=== PATIENT | female | born 1955 | race Caucasian/White ===

== ENCOUNTER 2021-02-14 12:46 | Inpatient (IN) | payer MEDICARE, MEDICAID ==
[~2021-02-14] VITALS: Ht 170.2 cm; Wt 139.4 kg
[~2021-02-14 12:46] MED LIST: ALBUAER3 IN; CARI-277 PO; CARV3.1240 PO; CLIN300C8 PO; FURO40TA4 PO; HYDR-4833 PO; HYDR8TAB46 PO; POTA10TA32 PO; SACC250C PO
[2021-02-14] MEDS ORDERED: SODIUM CHLORIDE 0.9% 500 ML IV ONE (13:15)
[2021-02-14] MEDS ORDERED: CLINDAMYCIN 600MG IV 50 ML IV ONE (13:15)
[2021-02-14 14:05] LABS: Basophils # (auto) 0.2 10 ^3/uL (0-0.2); Eosinophils # (auto) 0.5 10 ^3/uL (0-0.8); Hemoglobin 12.2 g/dL (12.2-16.2)
[2021-02-14 14:07] LABS: Basophils % (auto) 1.3 % (0.0-2.0); Eosinophils % (auto) 3.5 % (0.0-7.0); Hematocrit 37.6 % (36.0-46.0); Lymphocytes # (auto) 1.8 10 ^3/uL (0.4-5.4); Lymphocytes % (auto) 12.5 % (10.0-50.0); Mean Corpuscular Hgb Conc. 32.4 g/dL (32.0-36.0); Mean Corpuscular Volume 83.2 fL (80.0-100.0); Monocytes # (auto) 1.3 10 ^3/uL (0-1.3); Monocytes % (auto) 9.2 % (0.0-12.0); Neutrophils # (auto) 10.4 10 ^3/uL (1.6-8.6); Neutrophils % (auto) 73.5 % (37.0-80.0); Nucleated Red Blood Cells % 0.1 %; Red Blood Cells 4.53 10^6/uL (4.0-5.20); White Blood Cell 14.2 10^3/uL (4.4-10.8)
[2021-02-14 14:22] LABS: Albumin 3.1 g/dL (3.4-5.0); Calcium 8.6 mg/dL (8.5-10.1)
[2021-02-14 14:25] LABS: BUN/Creatinine Ratio 18.8; Total Protein 6.4 g/dL (6.4-8.2)
[2021-02-14] MEDS ORDERED: ACETAMINOPHEN 500 MG TAB PO PRN (18:30)
[2021-02-14] MEDS ORDERED: ALBUTEROL SULF 2.5 MG/0.5ML(0.5%) NEB SOLN NEB PRN (18:30)
[2021-02-14] MEDS ORDERED: LORazepam 0.5 MG TAB PO PRN (18:30)
[2021-02-14] MEDS ORDERED: MORPHINE SULFATE INJECTION 2 MG/ML SYRG IV PRN (18:30)
[2021-02-14] MEDS ORDERED: TETANUS-DIPTH-ACEL PERTUSSIS 0.5ML SYR Tdap IM ONE (18:30)
[2021-02-14] MEDS ORDERED: DEXTROSE (50%) 50ML SYRG IV PRN (18:30)
[2021-02-14] MEDS ORDERED: DOCUSATE CALCIUM 240 MG CAP PO PRN (18:30)
[2021-02-14] MEDS ORDERED: IPRATROPIUM BROM 0.5 MG/2.5ML INH SOL NEB PRN (18:30)
[2021-02-14] MEDS ORDERED: NITROGLYCERIN 0.4 MG SL TAB SL PRN (18:30)
[2021-02-14] MEDS ORDERED: hydrALAZINE HCL 20 MG/ML VL IV PRN (18:30)
[2021-02-14] MEDS: MORPHINE SULFATE 4 MG/ML SYR/VIAL IV PRN (19:08)
[2021-02-14 19:24] VITALS: BP 153/68
[2021-02-14] MEDS: InsuLIN REG 1unit/0.01ml Soln (100units/ml) SC SCH (20:00)
[2021-02-14] MEDS: ACCU-CHEK COMFORT CURVE STRIP VI SCH ×2 (20:16→23:04)
[2021-02-14 20:37] VITALS: BP 153/85
[2021-02-14] MEDS ORDERED: APIX5TAB PO (21:06)
[2021-02-14] MEDS ORDERED: CARV3.1240 PO (21:06)
[2021-02-14] MEDS ORDERED: OXYB5TAB61 PO (21:07)
[2021-02-14] MEDS ORDERED: NAPR220C PO (21:11)
[2021-02-14 22:00] VITALS: BP 130/72
[2021-02-14] MEDS: INSULIN LANTUS (GLARGINE) 1 /0.01ml (100units/ml) SC SCH (23:08)
[2021-02-14] MEDS: PIPERACILLIN-TAZOB 3.375GM 100 ML IV SCH (23:44)
[2021-02-15] MEDS: InsuLIN REG 1unit/0.01ml Soln (100units/ml) SC SCH ×7 (00:01→22:00)
[2021-02-15] MEDS: ACCU-CHEK COMFORT CURVE STRIP VI SCH ×6 (04:05→22:00)
[2021-02-15 05:00] VITALS: BP 131/79
[2021-02-15] MEDS: PIPERACILLIN-TAZOB 3.375GM 100 ML IV SCH ×4 (06:13→23:51)
[2021-02-15] MEDS: MORPHINE SULFATE 4 MG/ML SYR/VIAL IV PRN ×4 (06:33→23:51)
[2021-02-15 06:38] LABS: Basophils # (auto) 0.1 10 ^3/uL (0-0.2); Eosinophils # (auto) 0.6 10 ^3/uL (0-0.8); Mean Corpuscular Hemoglobin 26.5 pg (28.0-32.0); Nucleated Red Blood Cells % 0.1 %
[2021-02-15 06:40] LABS: Basophils % (auto) 1.2 % (0.0-2.0); Eosinophils % (auto) 5.3 % (0.0-7.0); Hematocrit 40.8 % (36.0-46.0); Hemoglobin 12.7 g/dL (12.2-16.2); Lymphocytes # (auto) 1.8 10 ^3/uL (0.4-5.4); Lymphocytes % (auto) 15.1 % (10.0-50.0); Mean Corpuscular Hgb Conc. 31.1 g/dL (32.0-36.0); Monocytes # (auto) 1.2 10 ^3/uL (0-1.3); Monocytes % (auto) 10.1 % (0.0-12.0); Neutrophils # (auto) 8.3 10 ^3/uL (1.6-8.6); Neutrophils % (auto) 68.3 % (37.0-80.0); Red Cell Distribution Width 16.7 % (11.8-14.3); White Blood Cell 12.2 10^3/uL (4.4-10.8)
[2021-02-15 06:43] LABS: Potassium 4.2 mmol/L (3.5-5.1)
[2021-02-15 06:48] LABS: Albumin 2.8 g/dL (3.4-5.0); Calcium 8.4 mg/dL (8.5-10.1); Total Protein 6.3 g/dL (6.4-8.2)
[2021-02-15 07:03] LABS: INR 1.18 (0.9-1.15); Partial Thromboplastin Time 27.3 sec (23.0-31.2)
[2021-02-15 07:23] LABS: Urine Bacteria MANY /hpf (None Seen); Urine Blood 3+ /uL (Negative); Urine Mucus FEW (None Seen); Urine Specific Gravity 1.023 (1.001-1.035); Urine WBC 250 /hpf (0 - 5); Urine WBC Clumps PRESENT /hpf (None Seen)
[2021-02-15 09:00] VITALS: BP 121/80
[2021-02-15] MEDS ORDERED: ENOXAPARIN SOD 40 MG/0.4 ML SYRINGE SC SCH (10:00)
[2021-02-15] MEDS: PANTOPRAZOLE 40 MG TAB PO SCH (10:02)
[2021-02-15] MEDS: levoFLOXacin 750MG 150 ML IV SCH (10:02)
[2021-02-15 13:00] VITALS: BP 124/75
[2021-02-15] MEDS ORDERED: NAPROXEN 500 MG TAB PO PRN (16:30)
[2021-02-15] MEDS ORDERED: CARISOPRODOL 350 MG TAB PO PRN (16:30)
[2021-02-15 17:00] VITALS: BP 125/73
[2021-02-15] MEDS: ONDANSETRON HCL 4 MG/2 ML VIAL IV PRN (18:01)
[2021-02-15] MEDS: NAPROXEN 500 MG TAB PO SCH ×2 (18:01→22:25)
[2021-02-15 20:00] VITALS: BP 141/73
[2021-02-15 22:00] VITALS: BP 141/73
[2021-02-15] MEDS: INSULIN LANTUS (GLARGINE) 1 /0.01ml (100units/ml) SC SCH (22:00)
[2021-02-15] MEDS: OXYBUTYNIN CHL 5 MG TAB PO SCH (22:18)
[2021-02-15] MEDS: APIXABAN 5 MG TAB PO SCH (22:18)
[2021-02-15] MEDS: CLINDAMYCIN 300MG IV 50 ML IV SCH (22:26)
[2021-02-15] MEDS: CARVEDILOL 3.125 MG TAB PO SCH (22:26)
[2021-02-16 05:00] VITALS: BP 130/77
[2021-02-16] MEDS: CLINDAMYCIN 300MG IV 50 ML IV SCH ×3 (05:36→22:28)
[2021-02-16] MEDS: MORPHINE SULFATE 4 MG/ML SYR/VIAL IV PRN ×3 (05:45→23:02)
[2021-02-16 06:03] LABS: Basophils # (auto) 0.1 10 ^3/uL (0-0.2); Eosinophils # (auto) 0.4 10 ^3/uL (0-0.8); Lymphocytes # (auto) 2.3 10 ^3/uL (0.4-5.4); Monocytes # (auto) 1.5 10 ^3/uL (0-1.3); Monocytes % (auto) 10.6 % (0.0-12.0); Nucleated Red Blood Cells % 0.1 %
[2021-02-16 06:05] LABS: Basophils % (auto) 0.9 % (0.0-2.0); Eosinophils % (auto) 2.9 % (0.0-7.0); Hematocrit 39.5 % (36.0-46.0); Hemoglobin 12.5 g/dL (12.2-16.2); Lymphocytes % (auto) 16.6 % (10.0-50.0); Mean Corpuscular Hgb Conc. 31.6 g/dL (32.0-36.0); Mean Corpuscular Volume 85.4 fL (80.0-100.0); Neutrophils # (auto) 9.7 10 ^3/uL (1.6-8.6); Red Blood Cells 4.62 10^6/uL (4.0-5.20); Red Cell Distribution Width 17.3 % (11.8-14.3); White Blood Cell 14.1 10^3/uL (4.4-10.8)
[2021-02-16 06:11] LABS: Potassium 4.9 mmol/L (3.5-5.1)
[2021-02-16 06:18] LABS: INR 1.24 (0.9-1.15)
[2021-02-16 06:19] LABS: Albumin 2.8 g/dL (3.4-5.0); BUN/Creatinine Ratio 18.7; Bilirubin, Total 0.8 mg/dL (0.2-1.0); Calcium 8.6 mg/dL (8.5-10.1); Total Protein 6.6 g/dL (6.4-8.2)
[2021-02-16] MEDS: PIPERACILLIN-TAZOB 3.375GM 100 ML IV SCH ×2 (06:37→12:32)
[2021-02-16] MEDS: ACCU-CHEK COMFORT CURVE STRIP VI SCH ×4 (06:44→22:00)
[2021-02-16] MEDS: NAPROXEN 500 MG TAB PO SCH ×4 (06:48→22:27)
[2021-02-16] MEDS: InsuLIN REG 1unit/0.01ml Soln (100units/ml) SC SCH ×4 (06:50→22:00)
[2021-02-16 09:00] VITALS: BP 126/72
[2021-02-16] MEDS: levoFLOXacin 750MG 150 ML IV SCH (10:39)
[2021-02-16] MEDS: POTASSIUM CHLORIDE 8 MEQ TAB PO SCH (10:40)
[2021-02-16] MEDS: FLORASTOR (S. BOULARDII) 250 MG CAP PO SCH (10:40)
[2021-02-16] MEDS: OXYBUTYNIN CHL 5 MG TAB PO SCH ×2 (10:40→22:27)
[2021-02-16] MEDS: CARVEDILOL 3.125 MG TAB PO SCH ×2 (10:40→22:28)
[2021-02-16] MEDS: APIXABAN 5 MG TAB PO SCH ×2 (10:40→22:27)
[2021-02-16] MEDS: FUROSEMIDE 40 MG TAB PO SCH (10:41)
[2021-02-16] MEDS: PANTOPRAZOLE 40 MG TAB PO SCH (10:41)
[2021-02-16 13:00] VITALS: BP 111/61
[2021-02-16 16:49] VITALS: BP 136/80
[2021-02-16] MEDS: Glucerna Carbsteady SHAKE Vanilla 8oz PO SCH (18:42)
[2021-02-16 20:00] VITALS: BP 130/73
[2021-02-16] MEDS: INSULIN LANTUS (GLARGINE) 1 /0.01ml (100units/ml) SC SCH (22:00)
[2021-02-16 22:14] VITALS: BP 130/73
[2021-02-17] VITALS (7 sets, daily range): BP systolic 114–141; BP diastolic 53–76
[2021-02-17] MEDS: CLINDAMYCIN 300MG IV 50 ML IV SCH ×3 (05:41→23:06)
[2021-02-17] MEDS: ACCU-CHEK COMFORT CURVE STRIP VI SCH ×4 (06:31→23:14)
[2021-02-17] MEDS: InsuLIN REG 1unit/0.01ml Soln (100units/ml) SC SCH ×4 (06:31→22:00)
[2021-02-17] MEDS: NAPROXEN 500 MG TAB PO SCH ×2 (06:37→11:46)
[2021-02-17] MEDS: Glucerna Carbsteady SHAKE Vanilla 8oz PO SCH ×3 (08:00→18:00)
[2021-02-17] MEDS: OXYBUTYNIN CHL 5 MG TAB PO SCH ×3 (10:14→23:06)
[2021-02-17] MEDS: MORPHINE SULFATE 4 MG/ML SYR/VIAL IV PRN ×2 (10:14→14:43)
[2021-02-17] MEDS: APIXABAN 5 MG TAB PO SCH (10:15)
[2021-02-17] MEDS: POTASSIUM CHLORIDE 8 MEQ TAB PO SCH (10:15)
[2021-02-17] MEDS: PANTOPRAZOLE 40 MG TAB PO SCH (10:15)
[2021-02-17] MEDS: FUROSEMIDE 40 MG TAB PO SCH (10:15)
[2021-02-17] MEDS: levoFLOXacin 750MG 150 ML IV SCH (10:16)
[2021-02-17] MEDS: CARVEDILOL 3.125 MG TAB PO SCH ×3 (10:16→23:07)
[2021-02-17] MEDS: FLORASTOR (S. BOULARDII) 250 MG CAP PO SCH (10:47)
[2021-02-17 11:23] LABS: Basophils # (auto) 0.1 10 ^3/uL (0-0.2); Lymphocytes # (auto) 1.4 10 ^3/uL (0.4-5.4); Mean Corpuscular Hemoglobin 26.8 pg (28.0-32.0); Monocytes % (auto) 9.7 % (0.0-12.0); Nucleated Red Blood Cells % 0.1 %
[2021-02-17 11:25] LABS: Basophils % (auto) 0.9 % (0.0-2.0); Eosinophils # (auto) 0.4 10 ^3/uL (0-0.8); Eosinophils % (auto) 3.5 % (0.0-7.0); Hematocrit 36.8 % (36.0-46.0); Hemoglobin 11.8 g/dL (12.2-16.2); Lymphocytes % (auto) 13.1 % (10.0-50.0); Mean Corpuscular Hgb Conc. 32.2 g/dL (32.0-36.0); Mean Corpuscular Volume 83.2 fL (80.0-100.0); Neutrophils # (auto) 7.5 10 ^3/uL (1.6-8.6); Neutrophils % (auto) 72.8 % (37.0-80.0); Red Blood Cells 4.42 10^6/uL (4.0-5.20); Red Cell Distribution Width 16.8 % (11.8-14.3); White Blood Cell 10.3 10^3/uL (4.4-10.8)
[2021-02-17 11:40] LABS: Calcium 8.5 mg/dL (8.5-10.1); Potassium 4.5 mmol/L (3.5-5.1)
[2021-02-17] MEDS: ONDANSETRON HCL 4 MG/2 ML VIAL IV PRN (15:00)
[2021-02-17] MEDS ORDERED: ALPRAZolam 0.5 MG TAB PO PRN (15:15)
[2021-02-17] MEDS: HYDROcodone-ACET 5/325MG TAB PO PRN (18:00)
[2021-02-18] MEDS: INSULIN LANTUS (GLARGINE) 1 /0.01ml (100units/ml) SC SCH ×2 (02:08→22:28)
[2021-02-18 05:00] VITALS: BP 129/64
[2021-02-18] MEDS: InsuLIN REG 1unit/0.01ml Soln (100units/ml) SC SCH ×4 (05:48→22:29)
[2021-02-18] MEDS: CLINDAMYCIN 300MG IV 50 ML IV SCH ×3 (05:53→22:06)
[2021-02-18] MEDS: ACCU-CHEK COMFORT CURVE STRIP VI SCH ×4 (05:53→22:20)
[2021-02-18 08:00] VITALS: BP 147/79
[2021-02-18 09:10] VITALS: BP 147/79
[2021-02-18] MEDS: levoFLOXacin 750MG 150 ML IV SCH (10:25)
[2021-02-18] MEDS: CARVEDILOL 3.125 MG TAB PO SCH ×2 (10:25→22:06)
[2021-02-18] MEDS: Glucerna Carbsteady SHAKE Vanilla 8oz PO SCH ×3 (10:25→18:15)
[2021-02-18] MEDS: PANTOPRAZOLE 40 MG TAB PO SCH (10:26)
[2021-02-18] MEDS: OXYBUTYNIN CHL 5 MG TAB PO SCH ×2 (10:26→22:33)
[2021-02-18] MEDS: FLORASTOR (S. BOULARDII) 250 MG CAP PO SCH (10:26)
[2021-02-18] MEDS ORDERED: ENOXAPARIN SOD 40 MG/0.4 ML SYRINGE SC ONE (12:15)
[2021-02-18 13:03] VITALS: BP 125/69
[2021-02-18] MEDS: HYDROcodone-ACET 5/325MG TAB PO PRN (14:08)
[2021-02-18] MEDS ORDERED: TEMAZEPAM 15 MG CAP PO PRN (14:45)
[2021-02-18 16:26] VITALS: BP 150/94
[2021-02-18] MEDS: MORPHINE SULFATE 4 MG/ML SYR/VIAL IV PRN (20:06)
[2021-02-18] MEDS: ONDANSETRON HCL 4 MG/2 ML VIAL IV PRN (20:14)
[2021-02-18 22:00] VITALS: BP 130/60
[2021-02-19 05:00] VITALS: BP 132/83
[2021-02-19] MEDS: CLINDAMYCIN 300MG IV 50 ML IV SCH ×2 (05:46→14:15)
[2021-02-19] MEDS: ACCU-CHEK COMFORT CURVE STRIP VI SCH ×4 (05:55→22:25)
[2021-02-19] MEDS: InsuLIN REG 1unit/0.01ml Soln (100units/ml) SC SCH ×4 (05:55→22:24)
[2021-02-19 08:00] VITALS: BP 161/92
[2021-02-19 09:00] VITALS: BP 161/82
[2021-02-19] MEDS: CARVEDILOL 3.125 MG TAB PO SCH ×2 (09:43→22:17)
[2021-02-19] MEDS: levoFLOXacin 750MG 150 ML IV SCH (09:43)
[2021-02-19] MEDS: Glucerna Carbsteady SHAKE Vanilla 8oz PO SCH ×3 (09:43→18:26)
[2021-02-19] MEDS: OXYBUTYNIN CHL 5 MG TAB PO SCH ×2 (09:44→22:20)
[2021-02-19] MEDS: ENOXAPARIN SOD 40 MG/0.4 ML SYRINGE SC SCH (09:44)
[2021-02-19] MEDS: PANTOPRAZOLE 40 MG TAB PO SCH (09:44)
[2021-02-19] MEDS: FLORASTOR (S. BOULARDII) 250 MG CAP PO SCH (09:44)
[2021-02-19] MEDS ORDERED: FUROSEMIDE 40 MG/4 ML VIAL IV ONE (10:30)
[2021-02-19 10:39] LABS: BUN/Creatinine Ratio 23.3; Calcium 8.8 mg/dL (8.5-10.1); Potassium 5.2 mmol/L (3.5-5.1)
[2021-02-19] MEDS: MORPHINE SULFATE 4 MG/ML SYR/VIAL IV PRN (10:40)
[2021-02-19] MEDS: ONDANSETRON HCL 4 MG/2 ML VIAL IV PRN (10:40)
[2021-02-19 13:00] VITALS: BP 137/76
[2021-02-19 17:00] VITALS: BP 125/63
[2021-02-19] MEDS: HYDROcodone-ACET 5/325MG TAB PO PRN (17:19)
[2021-02-19 22:00] VITALS: BP 126/68
[2021-02-19] MEDS: CLINDAMYCIN 600MG IV 50 ML IV SCH (22:07)
[2021-02-19] MEDS: INSULIN LANTUS (GLARGINE) 1 /0.01ml (100units/ml) SC SCH (22:25)
[2021-02-20 05:00] VITALS: BP 135/68
[2021-02-20] MEDS: CLINDAMYCIN 600MG IV 50 ML IV SCH ×3 (05:45→21:52)
[2021-02-20] MEDS: InsuLIN REG 1unit/0.01ml Soln (100units/ml) SC SCH ×4 (05:56→21:58)
[2021-02-20] MEDS: ACCU-CHEK COMFORT CURVE STRIP VI SCH ×4 (05:57→21:55)
[2021-02-20] MEDS: Glucerna Carbsteady SHAKE Vanilla 8oz PO SCH ×3 (08:05→18:30)
[2021-02-20 09:00] VITALS: BP 100/40
[2021-02-20] MEDS: PANTOPRAZOLE 40 MG TAB PO SCH (10:00)
[2021-02-20] MEDS: CARVEDILOL 3.125 MG TAB PO SCH ×2 (10:00→21:53)
[2021-02-20] MEDS: OXYBUTYNIN CHL 5 MG TAB PO SCH ×2 (10:00→21:53)
[2021-02-20] MEDS: FLORASTOR (S. BOULARDII) 250 MG CAP PO SCH (10:00)
[2021-02-20] MEDS: ENOXAPARIN SOD 40 MG/0.4 ML SYRINGE SC SCH (10:09)
[2021-02-20] MEDS: MORPHINE SULFATE 4 MG/ML SYR/VIAL IV PRN ×4 (10:09→22:01)
[2021-02-20] MEDS: levoFLOXacin 750MG 150 ML IV SCH (10:09)
[2021-02-20 11:00] LABS: BUN/Creatinine Ratio 20.2; Potassium 4.3 mmol/L (3.5-5.1)
[2021-02-20 13:00] VITALS: BP 133/70
[2021-02-20] MEDS ORDERED: IOHEXOL 300 MG/ML 100ML BOTTLE IJ ONE (13:00)
[2021-02-20] MEDS ORDERED: IOHEXOL 350 MG/ML 100ML IJ ONE (13:01)
[2021-02-20] MEDS ORDERED: ACETYLCYSTEINE ORAL for CIN 20%(200MG/ML) 4ML PO ONE (14:15)
[2021-02-20] MEDS ORDERED: ceFAZolin 1GM VL ONE (15:50)
[2021-02-20] MEDS ORDERED: ROPIVACAINE 0.5% (5MG/ML) 20ML AMPULE IJ ONE (15:50)
[2021-02-20] MEDS ORDERED: ceFAZolin 1GM/50ML 100 ML IV ONE (16:14)
[2021-02-20] MEDS ORDERED: MIDAZOLAM HCL 2MG/2ML 2ml VIAL (1mg/ml) ONE (16:37)
[2021-02-20] MEDS ORDERED: fentaNYL CITRATE 100 MCG/2 ML VL ONE (16:37)
[2021-02-20] MEDS ORDERED: PROPOFOL 10 MG/ML 20 ML IV ONE (16:52)
[2021-02-20] MEDS ORDERED: SILVER SULFADIAZINE 1 % TOPICAL CREAM 50GM TOP ONE (16:57)
[2021-02-20] MEDS: HYDROcodone-ACET 5/325MG TAB PO PRN (20:32)
[2021-02-20] MEDS: MUPIROCIN 2% OINT 15gm or 22gm EACHNOSTRI SCH (21:52)
[2021-02-20] MEDS: ACETYLCYSTEINE ORAL for CIN 20%(200MG/ML) 4ML PO SCH (21:59)
[2021-02-20] MEDS: INSULIN LANTUS (GLARGINE) 1 /0.01ml (100units/ml) SC SCH (21:59)
[2021-02-20 22:00] VITALS: BP 124/67
[2021-02-20] MEDS: ONDANSETRON HCL 4 MG/2 ML VIAL IV PRN (22:00)
[2021-02-21 05:00] VITALS: BP 133/69
[2021-02-21] MEDS: MORPHINE SULFATE 4 MG/ML SYR/VIAL IV PRN ×4 (05:27→22:07)
[2021-02-21] MEDS: ONDANSETRON HCL 4 MG/2 ML VIAL IV PRN ×2 (05:27→22:08)
[2021-02-21] MEDS: InsuLIN REG 1unit/0.01ml Soln (100units/ml) SC SCH ×4 (06:23→22:40)
[2021-02-21] MEDS: CLINDAMYCIN 600MG IV 50 ML IV SCH ×3 (06:23→22:07)
[2021-02-21] MEDS: ACCU-CHEK COMFORT CURVE STRIP VI SCH ×4 (06:23→22:09)
[2021-02-21] MEDS: Glucerna Carbsteady SHAKE Vanilla 8oz PO SCH ×3 (08:00→18:15)
[2021-02-21 08:53] VITALS: BP 100/49
[2021-02-21] MEDS: ENOXAPARIN SOD 40 MG/0.4 ML SYRINGE SC SCH (10:00)
[2021-02-21] MEDS: FLORASTOR (S. BOULARDII) 250 MG CAP PO SCH (10:00)
[2021-02-21] MEDS: CARVEDILOL 3.125 MG TAB PO SCH ×2 (10:00→22:08)
[2021-02-21] MEDS: OXYBUTYNIN CHL 5 MG TAB PO SCH ×2 (10:00→22:08)
[2021-02-21] MEDS: ACETYLCYSTEINE ORAL for CIN 20%(200MG/ML) 4ML PO SCH ×2 (10:00→22:38)
[2021-02-21] MEDS: levoFLOXacin 750MG 150 ML IV SCH (10:05)
[2021-02-21] MEDS ORDERED: IOHEXOL 350 MG/ML 100ML IJ ONE (15:14)
[2021-02-21] MEDS ORDERED: LIDOCAINE 2%HCL (LOCAL ANESTH.) INJ 20ML MDV ONE (15:14)
[2021-02-21] MEDS ORDERED: fentaNYL CITRATE 100 MCG/2 ML VL ONE (15:33)
[2021-02-21] MEDS ORDERED: MIDAZOLAM HCL 2MG/2ML 2ml VIAL (1mg/ml) ONE (15:33)
[2021-02-21 17:01] VITALS: BP 136/63
[2021-02-21 22:00] VITALS: BP 134/68
[2021-02-21] MEDS: SODIUM CHLOR 0.9% PF (SALINE LOCK) 10ML VIAL/SYR IV SCH (22:08)
[2021-02-21] MEDS: INSULIN LANTUS (GLARGINE) 1 /0.01ml (100units/ml) SC SCH (22:41)
[2021-02-22 05:00] VITALS: BP 120/68
[2021-02-22] MEDS: ACCU-CHEK COMFORT CURVE STRIP VI SCH ×4 (05:58→21:32)
[2021-02-22] MEDS: InsuLIN REG 1unit/0.01ml Soln (100units/ml) SC SCH ×4 (05:59→21:34)
[2021-02-22] MEDS: SODIUM CHLOR 0.9% PF (SALINE LOCK) 10ML VIAL/SYR IV SCH ×3 (06:11→21:16)
[2021-02-22] MEDS: CLINDAMYCIN 600MG IV 50 ML IV SCH ×3 (06:11→18:00)
[2021-02-22] MEDS: MORPHINE SULFATE 4 MG/ML SYR/VIAL IV PRN ×4 (06:11→22:57)
[2021-02-22] MEDS: ONDANSETRON HCL 4 MG/2 ML VIAL IV PRN ×3 (06:12→20:28)
[2021-02-22 06:20] LABS: Basophils # (auto) 0.1 10 ^3/uL (0-0.2); Eosinophils # (auto) 0.3 10 ^3/uL (0-0.8); Hemoglobin 11.9 g/dL (12.2-16.2); Nucleated Red Blood Cells % 0.1 %
[2021-02-22 06:23] LABS: Basophils % (auto) 0.8 % (0.0-2.0); Eosinophils % (auto) 3.1 % (0.0-7.0); Hematocrit 35.8 % (36.0-46.0); Lymphocytes # (auto) 1.6 10 ^3/uL (0.4-5.4); Lymphocytes % (auto) 15.7 % (10.0-50.0); Mean Corpuscular Hemoglobin 26.9 pg (28.0-32.0); Mean Corpuscular Hgb Conc. 33.2 g/dL (32.0-36.0); Monocytes % (auto) 10.4 % (0.0-12.0); Red Blood Cells 4.42 10^6/uL (4.0-5.20); Red Cell Distribution Width 16.7 % (11.8-14.3); White Blood Cell 9.9 10^3/uL (4.4-10.8)
[2021-02-22 06:54] LABS: BUN/Creatinine Ratio 21.8; Calcium 8.9 mg/dL (8.5-10.1); Potassium 4.3 mmol/L (3.5-5.1)
[2021-02-22 08:00] VITALS: BP 154/74
[2021-02-22] MEDS: Glucerna Carbsteady SHAKE Vanilla 8oz PO SCH ×3 (08:00→17:53)
[2021-02-22 09:00] VITALS: BP 154/74
[2021-02-22] MEDS: HYDROcodone-ACET 5/325MG TAB PO PRN ×2 (10:30→21:17)
[2021-02-22] MEDS: levoFLOXacin 750MG 150 ML IV SCH (10:33)
[2021-02-22] MEDS: CARVEDILOL 3.125 MG TAB PO SCH ×3 (10:34→22:16)
[2021-02-22] MEDS: OXYBUTYNIN CHL 5 MG TAB PO SCH ×2 (10:35→21:16)
[2021-02-22] MEDS: FLORASTOR (S. BOULARDII) 250 MG CAP PO SCH (10:36)
[2021-02-22] MEDS: ENOXAPARIN SOD 40 MG/0.4 ML SYRINGE SC SCH (10:36)
[2021-02-22] MEDS: NICOTINE 14 MG/24HR TOPICAL PATCH TD SCH (12:03)
[2021-02-22 13:00] VITALS: BP 116/68
[2021-02-22 17:10] VITALS: BP 122/75
[2021-02-22] MEDS: SILVER SULFADIAZINE 1 % TOPICAL CREAM 50GM TOP SCH (17:36)
[2021-02-22] MEDS: ENOXAPARIN SOD 100 MG/1 ML SYRINGE SC SCH (21:16)
[2021-02-22] MEDS: INSULIN LANTUS (GLARGINE) 1 /0.01ml (100units/ml) SC SCH (22:00)
[2021-02-22] MEDS: MUPIROCIN 2% OINT 15gm or 22gm EACHNOSTRI SCH (22:00)
[2021-02-22 22:01] VITALS: BP 119/63
[2021-02-23] MEDS: CLINDAMYCIN 600MG IV 50 ML IV SCH ×2 (02:06→09:51)
[2021-02-23] MEDS: MORPHINE SULFATE 4 MG/ML SYR/VIAL IV PRN ×3 (04:35→12:08)
[2021-02-23] MEDS: ONDANSETRON HCL 4 MG/2 ML VIAL IV PRN ×2 (04:37→12:13)
[2021-02-23 05:11] VITALS: BP 126/69
[2021-02-23 06:03] LABS: Basophils # (auto) 0.1 10 ^3/uL (0-0.2)
[2021-02-23 06:05] LABS: Basophils % (auto) 0.8 % (0.0-2.0); Eosinophils # (auto) 0.3 10 ^3/uL (0-0.8); Eosinophils % (auto) 3.5 % (0.0-7.0); Hematocrit 36.6 % (36.0-46.0); Hemoglobin 11.6 g/dL (12.2-16.2); Lymphocytes % (auto) 21.1 % (10.0-50.0); Mean Corpuscular Hgb Conc. 31.8 g/dL (32.0-36.0); Mean Corpuscular Volume 81.8 fL (80.0-100.0); Monocytes # (auto) 1.1 10 ^3/uL (0-1.3); Monocytes % (auto) 11.5 % (0.0-12.0); Neutrophils # (auto) 6.1 10 ^3/uL (1.6-8.6); Neutrophils % (auto) 63.1 % (37.0-80.0); Nucleated Red Blood Cells % 0.2 %; Red Blood Cells 4.47 10^6/uL (4.0-5.20); Red Cell Distribution Width 17.1 % (11.8-14.3); White Blood Cell 9.6 10^3/uL (4.4-10.8)
[2021-02-23 06:12] LABS: Albumin 2.3 g/dL (3.4-5.0); Calcium 8.8 mg/dL (8.5-10.1); Potassium 4.1 mmol/L (3.5-5.1)
[2021-02-23 06:15] LABS: Bilirubin, Total 0.5 mg/dL (0.2-1.0); Total Protein 5.5 g/dL (6.4-8.2)
[2021-02-23] MEDS: SODIUM CHLOR 0.9% PF (SALINE LOCK) 10ML VIAL/SYR IV SCH ×2 (06:24→14:00)
[2021-02-23] MEDS: ACCU-CHEK COMFORT CURVE STRIP VI SCH ×3 (06:31→17:00)
[2021-02-23] MEDS: InsuLIN REG 1unit/0.01ml Soln (100units/ml) SC SCH ×3 (06:31→17:00)
[2021-02-23] MEDS: Glucerna Carbsteady SHAKE Vanilla 8oz PO SCH ×2 (08:00→11:58)
[2021-02-23 09:00] VITALS: BP 129/72
[2021-02-23] MEDS: NICOTINE 14 MG/24HR TOPICAL PATCH TD SCH (09:50)
[2021-02-23] MEDS: ENOXAPARIN SOD 100 MG/1 ML SYRINGE SC SCH (09:50)
[2021-02-23] MEDS: SILVER SULFADIAZINE 1 % TOPICAL CREAM 50GM TOP SCH (09:51)
[2021-02-23] MEDS: FLORASTOR (S. BOULARDII) 250 MG CAP PO SCH (09:51)
[2021-02-23] MEDS: levoFLOXacin 750MG 150 ML IV SCH (09:51)
[2021-02-23] MEDS: OXYBUTYNIN CHL 5 MG TAB PO SCH (09:51)
[2021-02-23] MEDS: CARVEDILOL 3.125 MG TAB PO SCH (09:58)
[2021-02-23] MEDS ORDERED: MUPIROCIN 2% OINT 15gm or 22gm EACHNOSTRI SCH (10:00)
[2021-02-23 13:32] VITALS: BP 124/62
[2021-02-23 16:22] VITALS: BP 116/57
[2021-02-23 16:54] VITALS: BP 122/66
== END 2021-02-23 17:17 | disposition home or self-care (01) | DRG 853 ==
LOC: ER 12:46 → TELE 18:20 → TELE-WESTW 19:40
PROVIDERS: ADMIT Family Medicine; ATTEND Internal Medicine
PROC: 0JBQ0ZZ Excision of Right Foot Subcutaneous Tissue and Fascia, Open Approach (ICD-10-PCS; 2021-02-20)
PROC: 0JBR0ZZ Excision of Left Foot Subcutaneous Tissue and Fascia, Open Approach (ICD-10-PCS; principal; 2021-02-20 16:32)
PROC: 4A023N7 Measurement of Cardiac Sampling and Pressure, Left Heart, Percutaneous Approach (ICD-10-PCS; 2021-02-21)
PROC: B2111ZZ Fluoroscopy of Multiple Coronary Arteries using Low Osmolar Contrast (ICD-10-PCS; 2021-02-21)
PROC: B2151ZZ Fluoroscopy of Left Heart using Low Osmolar Contrast (ICD-10-PCS; 2021-02-21)
DX: A41.9 Sepsis, unspecified organism (principal); J96.21 Acute and chronic respiratory failure with hypoxia; N17.0 Acute kidney failure with tubular necrosis; E11.52 Type 2 diabetes mellitus with diabetic peripheral angiopathy with gangrene; L03.115 Cellulitis of right lower limb; N39.0 Urinary tract infection, site not specified; E44.0 Moderate protein-calorie malnutrition; L03.116 Cellulitis of left lower limb; Z68.42 Body mass index [BMI] 45.0-49.9, adult; I27.0 Primary pulmonary hypertension; I50.32 Chronic diastolic (congestive) heart failure; J98.11 Atelectasis; I82.412 Acute embolism and thrombosis of left femoral vein; J44.9 Chronic obstructive pulmonary disease, unspecified; M19.90 Unspecified osteoarthritis, unspecified site; E03.9 Hypothyroidism, unspecified; Z20.822 Contact with and (suspected) exposure to COVID-19; E87.5 Hyperkalemia; E11.22 Type 2 diabetes mellitus with diabetic chronic kidney disease; N18.31 Chronic kidney disease, stage 3a; E11.621 Type 2 diabetes mellitus with foot ulcer; E11.65 Type 2 diabetes mellitus with hyperglycemia; E66.01 Morbid (severe) obesity due to excess calories; F17.210 Nicotine dependence, cigarettes, uncomplicated; F41.9 Anxiety disorder, unspecified; G89.4 Chronic pain syndrome; I07.1 Rheumatic tricuspid insufficiency; I25.10 Atherosclerotic heart disease of native coronary artery without angina pectoris; L97.519 Non-pressure chronic ulcer of other part of right foot with unspecified severity; L97.529 Non-pressure chronic ulcer of other part of left foot with unspecified severity; Z79.01 Long term (current) use of anticoagulants; Z82.5 Family history of asthma and other chronic lower respiratory diseases; Z83.3 Family history of diabetes mellitus; Z85.41 Personal history of malignant neoplasm of cervix uteri; Z86.718 Personal history of other venous thrombosis and embolism; Z91.19 Patient's noncompliance with other medical treatment and regimen; I11.0 Hypertensive heart disease with heart failure
CPT/HCPCS: 36415; 71045; 71275; 73630; 73700; 80048; 80053; 81001; 82962; 83036; 83880; 84443; 85025; 85610; 85652; 85730; 87040; 87070; 87075; 87077; 87081; 87086; 87186; 87205; 87426; 90471; 90715; 93005; 93306; 93458; 93925; 93970; 96361; 96365; 99152; G0378; J0690; J1815; J1956; J2250; J2405; J2543; J2704; J3490

== ENCOUNTER 2021-02-24 08:01 | Emergency (ER) | payer MEDICARE, MEDICAID ==
[~2021-02-24] VITALS: Ht 170.2 cm; Wt 136.1 kg
[~2021-02-24 08:01] MED LIST changes: +APIX5TAB PO; -FURO40TA4 PO; -HYDR8TAB46 PO; +NAPR220C PO; +OXYB5TAB61 PO
[2021-02-24] MEDS ORDERED: MORPHINE SULFATE 4 MG/ML SYR/VIAL IV ONE (08:45)
[2021-02-24] MEDS ORDERED: ONDANSETRON HCL 4 MG/2 ML VIAL IV ONE (08:45)
[2021-02-24] MEDS ORDERED: IPRATROPIUM BROM 0.5 MG/2.5ML INH SOL NEB ONE (08:45)
[2021-02-24] MEDS ORDERED: ALBUTEROL SULF 2.5 MG/0.5ML(0.5%) NEB SOLN NEB ONE (08:45)
[2021-02-24] MEDS ORDERED: methylPREDNISolone SOD SUCC 125 MG/2 ML VL IV ONE (08:45)
[2021-02-24 09:50] LABS: Basophils # (auto) 0.1 10 ^3/uL (0-0.2); Eosinophils % (auto) 1.3 % (0.0-7.0); Neutrophils # (auto) 9.1 10 ^3/uL (1.6-8.6)
[2021-02-24 09:52] LABS: Basophils % (auto) 0.9 % (0.0-2.0); Eosinophils # (auto) 0.1 10 ^3/uL (0-0.8); Hematocrit 39.1 % (36.0-46.0); Hemoglobin 12.3 g/dL (12.2-16.2); Lymphocytes # (auto) 1.5 10 ^3/uL (0.4-5.4); Lymphocytes % (auto) 12.7 % (10.0-50.0); Mean Corpuscular Hemoglobin 25.7 pg (28.0-32.0); Mean Corpuscular Hgb Conc. 31.3 g/dL (32.0-36.0); Monocytes # (auto) 0.9 10 ^3/uL (0-1.3); Monocytes % (auto) 7.8 % (0.0-12.0); Neutrophils % (auto) 77.3 % (37.0-80.0); Nucleated Red Blood Cells % 0.1 %; Platelet Count (auto) 247 10^3/uL (140-450); Red Blood Cells 4.77 10^6/uL (4.0-5.20); Red Cell Distribution Width 16.8 % (11.8-14.3); White Blood Cell 11.7 10^3/uL (4.4-10.8)
[2021-02-24 10:05] LABS: INR 1.13 (0.9-1.15); Partial Thromboplastin Time 27.1 sec (23.0-31.2)
[2021-02-24 10:13] LABS: Albumin 2.7 g/dL (3.4-5.0); Calcium 8.9 mg/dL (8.5-10.1)
[2021-02-24 10:20] LABS: BUN/Creatinine Ratio 20.4; Bilirubin, Total 0.7 mg/dL (0.2-1.0); Total Protein 6.3 g/dL (6.4-8.2)
[2021-02-24 11:29] VITALS: BP 144/79
== END 2021-02-24 11:21 | disposition home or self-care (01) ==
LOC: ER 08:01 → EDUNIT# 08:01 → EDBD 08:01 → ER 11:21
DX: L03.116 Cellulitis of left lower limb (principal); L03.115 Cellulitis of right lower limb; J44.9 Chronic obstructive pulmonary disease, unspecified; F17.210 Nicotine dependence, cigarettes, uncomplicated; I11.0 Hypertensive heart disease with heart failure; I50.9 Heart failure, unspecified
CPT/HCPCS: 36415; 71045; 72192; 80053; 83880; 84484; 85025; 85610; 85730; 94640; 96374; 96375; 99285; J2270; J2405; J2930; J7644